=== PATIENT | male | born 1985 | race Asian ===

== ENCOUNTER 2019-12-28 05:50 | Inpatient (IN) | payer OTHER ==
[~2019-12-28] VITALS: Ht 188 cm; Wt 133.2 kg
[~2019-12-28 05:50] MED LIST: CeFAZolin 2 GM/DEXTROSE 50 ML IV ONE; IBUP-2070 PO; METF-960 PO; RINGERS SOLUTION,LACTATED 1,000 ML IV ONE; TRAM50TA4 PO
[2019-12-28] MEDS ORDERED: RINGERS SOLUTION,LACTATED 1,000 ML IV ONE ×2 (06:00→09:14)
[2019-12-28] MEDS ORDERED: CeFAZolin 2 GM/DEXTROSE 50 ML IV ONE (06:00)
[2019-12-28 06:45] LABS: BASOPHILS % (AUTO) 1.3 % (0.0-2.0); EOSINOPHILS % (AUTO) 3.9 % (1.0-6.0); HEMATOCRIT 44.1 % (41-53); HEMOGLOBIN 14.8 g/dL (13.5-17.5); LYMPHOCYTES # (AUTO) 2.1 K/uL (1.0-4.8); LYMPHOCYTES % (AUTO) 38.9 % (22.0-44.0); MEAN CORPUSCULAR HEMOGLOBIN 27.6 pg (26.0-34.0); MEAN CORPUSCULAR HGB CONC 33.5 G/dL (31.0-37.0); MEAN CORPUSCULAR VOLUME 82 fL (80-100); MONOCYTES # (AUTO) 0.4 K/uL (0.1-1.0); MONOCYTES % (AUTO) 7.2 % (2.0-9.0); NEUTROPHILS # (AUTO) 2.6 K/uL (1.8-7.7); NEUTROPHILS % (AUTO) 48.7 % (40.0-70.0); PLATELET COUNT (AUTO) 282 K/uL (150-450); RED BLOOD CELL COUNT(AUTO) 5.36 MIL/uL (4.50-5.90); RED CELL DISTRIBUTION WIDTH 12.5 % (11.5-14.5)
[2019-12-28] MEDS ORDERED: ONDANSETRON HCL 4 MG/2 ML VIAL IVP PRN (06:45)
[2019-12-28] MEDS ORDERED: MAG HYDROX/AL HYDROX/SIMETH 30 ML SUSP UDCUP PO PRN (06:45)
[2019-12-28] MEDS ORDERED: BENZOCAINE/MENTHOL LOZENGE PO PRN (06:45)
[2019-12-28] MEDS ORDERED: DiphenhydrAMINE HCL 50 MG/ML VIAL IVP PRN (06:45)
[2019-12-28] MEDS ORDERED: ZOLPIDEM TARTRATE 10 MG TABLET PO PRN (06:45)
[2019-12-28 06:46] LABS: ANION GAP 10 mmol/L (8-16); CALCIUM, TOTAL 8.9 mg/dL (8.8-10.5); CARBON DIOXIDE 27 mmol/L (22-29); CHLORIDE 100 mmol/L (98-107); CREATININE 0.88 mg/dL (0.60-1.30); GLOMERULAR FILTR. RATE CALC > 60 mL/min (>60); GLUCOSE,RANDOM 108 mg/dL (70-110); POTASSIUM 4.2 mmol/L (3.5-5.1); SODIUM SERUM 137 mmol/L (136-145); UREA NITROGEN, BLOOD 9 mg/dL (7-18)
[2019-12-28 06:52] LABS: ALANINE AMINOTRANSFERASE 88 U/L (12-78); ALBUMIN 4.1 g/dL (3.4-5.0); ALKALINE PHOSPHATASE 39 U/L (46-116); ASPARTATE AMINOTRANSFERASE 38 U/L (15-37); BILIRUBIN,TOTAL 0.4 mg/dL (0.1-1.0)
[2019-12-28] MEDS ORDERED: METF-960 PO (06:55)
[2019-12-28] MEDS ORDERED: BUPIVACAINE HCL/PF 0.5% 30 ML VIAL ONE (07:40)
[2019-12-28] MEDS ORDERED: VANCOMYCIN HCL 1 GM/VIAL ONE (07:41)
[2019-12-28] MEDS ORDERED: BUPIVACAINE LIPOSOME/PF 1.3%-13.3MG/ML SUSPENSION 20 ML VIAL INJ ONE (07:45)
[2019-12-28] MEDS ORDERED: BUPIVACAINE/EPI/PF 0.5% 30 ML VIAL ONE (08:01)
[2019-12-28] MEDS: BUPIVACAINE LIPOSOME/PF 1.3%-13.3MG/ML SUSPENSION 10 ML VIAL INJ ONE ×2 (08:10→08:31)
[2019-12-28] MEDS ORDERED: HYDROmorphone 2 MG/ML SYRINGE IVP PRN ×2 (09:00→10:15)
[2019-12-28] MEDS ORDERED: ACETAMINOPHEN 1000 MG/ISO-OSM 100 ML IV ONE ×3 (09:00→10:25)
[2019-12-28] MEDS ORDERED: FentaNYL CITRATE-PF 100 MCG/2 ML VIAL IVP PRN (09:00)
[2019-12-28] MEDS: DOCUSATE SODIUM 100 MG CAPSULE PO SCH ×2 (09:00→20:21)
[2019-12-28] MEDS ORDERED: HYDROmorphone 2 MG/ML SYRINGE ONE (10:25)
[2019-12-28] MEDS: OxyCODONE HCL/ACETAMINOPHEN 5-325 MG TABLET PO PRN ×2 (11:30→16:06)
[2019-12-28 11:46] VITALS: BP 138/90
[2019-12-28 15:59] VITALS: BP 141/76
[2019-12-28] MEDS: CYCLOBENZAPRINE HCL 10 MG TABLET PO SCH ×2 (16:06→20:21)
[2019-12-28] MEDS: MetFORMIN HCL 500 MG TABLET PO SCH (16:06)
[2019-12-28 19:15] VITALS: BP 139/87
[2019-12-28] MEDS ORDERED: OXYGEN THERAPY IH SCH (20:00)
[2019-12-28] MEDS ORDERED: SUCCINYLCHOLINE CHLORIDE 20 MG/ML 10 ML VIAL ONE (21:37)
[2019-12-28] MEDS ORDERED: ONDANSETRON HCL 4 MG/2 ML VIAL ONE (21:37)
[2019-12-28] MEDS ORDERED: PROPOFOL 1% 20 ML VIAL IVP ONE (21:37)
[2019-12-28] MEDS ORDERED: LIDOCAINE 2% 5 ML JELLY ONE (21:37)
[2019-12-28 23:26] VITALS: BP 145/83
[2019-12-29 05:13] VITALS: BP 144/95
[2019-12-29] MEDS: OxyCODONE HCL/ACETAMINOPHEN 5-325 MG TABLET PO PRN (05:48)
[2019-12-29 08:01] VITALS: BP 136/92
[2019-12-29] MEDS: CYCLOBENZAPRINE HCL 10 MG TABLET PO SCH (09:04)
[2019-12-29] MEDS: DOCUSATE SODIUM 100 MG CAPSULE PO SCH (09:04)
[2019-12-29] MEDS: MetFORMIN HCL 500 MG TABLET PO SCH (09:05)
[2019-12-29 12:05] VITALS: BP 142/82
== END 2019-12-29 12:30 | disposition home or self-care (01) | DRG 520 ==
LOC: 6N 05:50 → 4E 12:00
PROVIDERS: ADMIT Orthopaedic Surgery Orthopaedic Surgery of the Spine; ATTEND Orthopaedic Surgery Orthopaedic Surgery of the Spine
PROC: 0SB40ZZ Excision of Lumbosacral Disc, Open Approach (ICD-10-PCS; 2019-12-28)
PROC: 0SB20ZZ Excision of Lumbar Vertebral Disc, Open Approach (ICD-10-PCS; principal; 2019-12-28 08:45)
DX: M51.27 Other intervertebral disc displacement, lumbosacral region (principal); M51.26 Other intervertebral disc displacement, lumbar region
CPT/HCPCS: 83036; 87081; 94760; 97116; 97161; 97165; 97530; 97535; C9290; G0238; G0378; J0131; J0330; J0690; J1170; J2405; J2704; J3370; J3490; J7120